=== PATIENT | male | born 1980 | race Caucasian/White ===

== ENCOUNTER 2022-12-21 11:31 | Emergency (ER) | payer OTHER ==
[2022-12-21 12:03] VITALS: RESP 16
[2022-12-21] MEDS ORDERED: ONDANSETRON 4 MG/2 ML VIAL IVP STA (12:31)
[2022-12-21] MEDS ORDERED: KETOROLAC 15 MG/ML 1 ML VIAL IVP STA (12:31)
[2022-12-21] MEDS ORDERED: SODIUM CHLORIDE 0.9% 1,000 ML IV STA (12:31)
[2022-12-21] MEDS ORDERED: PANTOPRAZOLE 40 MG/10 ML VIAL IVP STA (12:31)
--- NOTE | 2022-12-21 12:36 | ED ---
General Adult HPI - General Chief complaint: Abdominal Pain Stated complaint: abdo/back left pain Time Seen by Provider: 12/21/22 12:17 Source: patient, RN notes reviewed, old records reviewed Mode of arrival: ambulatory Limitations: no limitations - History of Present Illness Initial comments: Patient is a 42-year-old male with past medical history that is unremarkable except for one episode that is remote 15 years ago of pancreatitis presents emergency Department complaining of primarily left lower quadrant abdominal pain that seems to radiate up the left side of his abdomen and back. No flank pain. Denies any dysuria hematuria. Endorses multiple days of nonbloody diarrhea, as well as nausea but no emesis. Denies any chest pain or shortness breath. Denies any fevers, chills, cough. No known sick contacts. It is not a daily alcohol drinker. No history of diabetes. Unknown what caused his pancreatitis 15 years ago. No history of abdominal surgeries. Has had increased flatulence as well over the last 3 weeks. Presents for further evaluation at this time. - Related Data Previous Rx's Medication Instructions Recorded Amoxic-Pot Clav 875-125Mg 1 tab PO Q8HR 5 Days #15 tab 12/21/22 [Augmentin 875-125] Allergies Allergy/AdvReac Type Severity Reaction Status Date / Time No Known Allergies Allergy Verified 12/21/22 11:43 Review of Systems ROS Statement: Those systems with pertinent positive or pertinent negative responses have been documented in the HPI. Review of Systems: CONST: Denies fever EYES: Denies blurry vision ENT: Denies nasal congestion C/V: Denies Chest pain RESP: Denies shortness of breath GI: Endorses abdominal pain : Denies dysuria SKIN: Denies rash. MSK: Denies joint pain. NEURO: Denies headache ROS Other: All systems not noted in ROS Statement are negative. Past Medical History Past Medical History: No Reported History History of Any Multi-Drug Resistant Organisms: None Reported Past Surgical History: No Surgical Hx Reported Additional Past Surgical History / Comment(s): vasectomy 2004 Past Psychological History: No Psychological Hx Reported Past Alcohol Use History: Rare Past Drug Use History: None Reported - Past Family History Mother Additional Family Medical History / Comment(s): Translocated genes-chromosomal abnormality General Exam - General Exam Comments Initial Comments: General: Appears in no acute distress. HEAD: Normal with no signs of head trauma. EYES: PERRLA, EOMI, conjunctiva normal, no discharge. ENT: Hearing grossly intact, normal oropharynx. RESPIRATORY: Clear breath sounds bilaterally. No wheezes, rales, or rhonchi. C/V: Regular rate and rhythm. S1 and S2 auscultated,peripheral pulses 2+ and intact throughout ABD: Abdomen is soft, nondistended. Tender to palpation left lower quadrant that is minimal. No guarding. No rebound tenderness. No peritoneal signs. No CVA tenderness to percussion. EXT: Normal range of motion, no obvious deformity SKIN: No rashes or lesions observed on exposed skin. NEURO: Alert and oriented 4. Limitations: no limitations Course Vital Signs 12/21/22 12/21/22 11:44 16:25 Temperature 97.9 F 98.7 F Pulse Rate 87 77 Respiratory 16 16 Rate Blood Pressure 128/87 122/82 O2 Sat by Pulse 97 98 Oximetry Medical Decision Making - Medical Decision Making Was pt. sent in by a medical professional or institution (, PA, RESEARCH PHLEBOTOMIST, urgent care, hospital, or senior living...) When possible be specific @ -No Did you speak to anyone other than the patient for history (EMS, parent, family, police, friend...)? What history was obtained from this source @ -No Did you review nursing and triage notes (agree or disagree)? Why? @ -I reviewed and agree with nursing and triage notes Were old charts reviewed (outside hosp., previous admission, EMS record, old EKG, old radiological studies, urgent care reports/EKG's, senior living records)? Report findings @ -No old charts were reviewed Differential Diagnosis (chest pain, altered mental status, abdominal pain women, abdominal pain men, vaginal bleeding, weakness, fever, dyspnea, syncope, headache, dizziness, GI bleed, back pain, seizure, CVA, palpatations, mental health, musculoskeletal)? @ -Differential Abdominal Pain Men: Appendicitis, cholecystitis, diverticulosis, ischemic bowel, pancreatitis, hepatitis, UTI, gastroenteritis, AAA, incarcerated hernia, bowel obstruction, constipation, inflammatory bowel, hepatitis, peptic ulcer disease, splenic infarction, perforated viscus, testicular torsion, this is not meant to be an all-inclusive list EKG interpreted by me (3pts min.). @ -None done X-rays interpreted by me (1pt min.). @ -None done CT interpreted by me (1pt min.). @ -CT abdomen and pelvis reveals diverticulitis. Appears uncomplicated. U/S interpreted by me (1pt. min.). @ -None done What testing was considered but not performed or refused? (CT, X-rays, U/S, labs)? Why? @ -None What meds were considered but not given or refused? Why? @ -None Did you discuss the management of the patient with other professionals (professionals i.e. , PA, RESEARCH PHLEBOTOMIST, lab, RT, psych nurse, marriage and family social worker, sales representative livestock, teacher, marketing and communications officer, showcase maker)? Give summary @ -No Was smoking cessation discussed for >3mins.? @ -No Was critical care preformed (if so, how long)? @ -No Were there social determinants of health that impacted care today? How? (Homelessness, low income, unemployed, alcoholism, drug addiction, transportation, low edu. Level, literacy, decrease access to med. care, care home, rehab)? @ -No Was there de-escalation of care discussed even if they declined (Discuss DNR or withdrawal of care, Hospice)? DNR status @ -No What co-morbidities impacted this encounter? (DM, HTN, Smoking, COPD, CAD, Cancer, CVA, ARF, Chemo, Hep., AIDS, mental health diagnosis, sleep apnea, morbid obesity)? @ -None Was patient admitted / discharged? Hospital course, mention meds given and route, prescriptions, significant lab abnormalities, going to OR and other per tinent info. @ -Based on the patient's presentation and physical exam, presents with primarily left lower quadrant abdominal pain with diarrhea. Exam is relatively unremarkable. Vital signs within acceptable limits. We will obtain abdominal laboratory studies as well as a CT abdomen and pelvis. He'll be symptomatically treated with IV fluids, Zofran, Protonix, Toradol. She was in agreement this plan. There is long delay in obtaining labs, however they did return within acceptable limits. CT shows uncomplicated diverticulitis. On reevaluation, patient's pain is improved. We discussed this workup and results. He understands he has diverticulitis. He will be placed on Augmentin and given a starter pack of Zofran. He was in agreement with this plan. I will provide the patient with a prescription for Augmentin. I instructed the patient to follow up with their PCP in the next 1-3 days. I explained that the patient should return to the emergency department if they experience any worsening symptoms. Strict return precautions were discussed with the patient. The patient expressed understanding of these instructions. I answered all qu estions that the patient had. The patient was discharged home in good condition with their prescriptions and follow up information. Undiagnosed new problem with uncertain prognosis? @ -No Drug Therapy requiring intensive monitoring for toxicity (Heparin, Nitro, Insulin, Cardizem)? @ -No Were any procedures done? @ -No Diagnosis/symptom? @ -Diverticulitis Acute, or Chronic, or Acute on Chronic? @ -Acute Uncomplicated (without systemic symptoms) or Complicated (systemic symptoms)? @ -Complicated Side effects of treatment? @ -none Exacerbation, Progression, or Severe Exacerbation] @ -no Poses a threat to life or bodily function? @ -no - Lab Data Result diagrams: 12/21/22 14:54 12/21/22 14:54 Lab Results 12/21/22 12/21/22 12/21/22 Range/Units 14:54 14:54 14:54 WBC 4.5 (3.8-10.6) k/uL RBC 5.77 (4.30-5.90) m/uL Hgb 15.9 (13.0-17.5) gm/dL Hct 48.4 (39.0-53.0) % MCV 83.8 (80.0-100.0) fL MCH 27.5 (25.0-35.0) pg MCHC 32.8 (31.0-37.0) g/dL RDW 13.1 (11.5-15.5) % Plt Count 246 (150-450) k/uL MPV 8.0 Neutrophils % 56 % Lymphocytes % 28 % Monocytes % 10 % Eosinophils % 2 % Basophils % 0 % Neutrophils # 2.5 (1.3-7.7) k/uL Lymphocytes # 1.2 (1.0-4.8) k/uL Monocytes # 0.4 (0-1.0) k/uL Eosinophils # 0.1 (0-0.7) k/uL Basophils # 0.0 (0-0.2) k/uL PT 10.2 (10.0-12.5) sec INR 0.9 (<1.2) APTT 24.3 (22.0-30.0) sec Sodium 140 (137-145) mmol/L Potassium 4.2 (3.5-5.1) mmol/L Chloride 103 (98-107) mmol/L Carbon Dioxide 27 (22-30) mmol/L Anion Gap 10 mmol/L BUN 18 (9-20) mg/dL Creatinine 0.95 (0.66-1.25) mg/dL Est GFR (CKD-EPI)AfAm >90 (>60 ml/min/1.73 sqM) Est GFR (CKD-EPI)NonAf >90 (>60 ml/min/1.73 sqM) Glucose 86 (74-99) mg/dL Plasma Lactic Acid Efrem (0.7-2.0) mmol/L Calcium 10.1 (8.4-10.2) mg/dL Total Bilirubin 0.5 (0.2-1.3) mg/dL AST 37 (17-59) U/L ALT 47 (4-49) U/L Alkaline Phosphatase 67 (38-126) U/L Total Protein 7.8 (6.3-8.2) g/dL Albumin 4.7 (3.5-5.0) g/dL Amylase 86 (30-110) U/L Lipase 281 (23-300) U/L Urine Color Urine Appearance (Clear) Urine pH (5.0-8.0) Ur Specific [place] (1.001-1.035) Urine Protein (Negative) Urine Glucose (UA) (Negative) Urine Ketones (Negative) Urine Blood (Negative) Urine Nitrite (Negative) Urine Bilirubin (Negative) Urine Urobilinogen (<2.0) mg/dL Ur Leukocyte Esterase (Negative) Urine RBC (0-5) /hpf Urine WBC (0-5) /hpf Urine Mucus (None) /hpf 12/21/22 12/21/22 Range/Units 14:54 15:10 WBC (3.8-10.6) k/uL RBC (4.30-5.90) m/uL Hgb (13.0-17.5) gm/dL Hct (39.0-53.0) % MCV (80.0-100.0) fL MCH (25.0-35.0) pg MCHC (31.0-37.0) g/dL RDW (11.5-15.5) % Plt Count (150-450) k/uL MPV Neutrophils % % Lymphocytes % % Monocytes % % Eosinophils % % Basophils % % Neutrophils # (1.3-7.7) k/uL Lymphocytes # (1.0-4.8) k/uL Monocytes # (0-1.0) k/uL Eosinophils # (0-0.7) k/uL Basophils # (0-0.2) k/uL PT (10.0-12.5) sec INR (<1.2) APTT (22.0-30.0) sec Sodium (137-145) mmol/L Potassium (3.5-5.1) mmol/L Chloride (98-107) mmol/L Carbon Dioxide (22-30) mmol/L Anion Gap mmol/L BUN (9-20) mg/dL Creatinine (0.66-1.25) mg/dL Est GFR (CKD-EPI)AfAm (>60 ml/min/1.73 sqM) Est GFR (CKD-EPI)NonAf (>60 ml/min/1.73 sqM) Glucose (74-99) mg/dL Plasma Lactic Acid Efrem 0.8 (0.7-2.0) mmol/L Calcium (8.4-10.2) mg/dL Total Bilirubin (0.2-1.3) mg/dL AST (17-59) U/L ALT (4-49) U/L Alkaline Phosphatase (38-126) U/L Total Protein (6.3-8.2) g/dL Albumin (3.5-5.0) g/dL Amylase (30-110) U/L Lipase (23-300) U/L Urine Color Yellow Urine Appearance Clear (Clear) Urine pH 5.0 (5.0-8.0) Ur Specific [place] 1.028 (1.001-1.035) Urine Protein Negative (Negative) Urine Glucose (UA) Negative (Negative) Urine Ketones Negative (Negative) Urine Blood Trace H (Negative) Urine Nitrite Negative (Negative) Urine Bilirubin Negative (Negative) Urine Urobilinogen <2.0 (<2.0) mg/dL Ur Leukocyte Esterase Negative (Negative) Urine RBC 1 (0-5) /hpf Urine WBC 1 (0-5) /hpf Urine Mucus Few H (None) /hpf Disposition Clinical Impression: Diverticulitis Disposition: HOME SELF-CARE Condition: Good Instructions (If sedation given, give patient instructions): Diverticulitis (ED) Prescriptions: Amoxic-Pot Clav 875-125Mg [Augmentin 875-125] 1 tab PO Q8HR 5 Days #15 tab Is patient prescribed a controlled substance at d/c from ED?: No Referrals: Chi Zhu MD [STAFF PHYSICIAN] - 1-2 days Time of Disposition: 16:00
[2022-12-21 15:30] LABS: INR 0.9 (<1.2); Partial Thromboplastin Time 24.3 sec (22.0-30.0); Prothrombin Time 10.2 sec (10.0-12.5)
[2022-12-21 15:34] LABS: Appearance,Urine Clear (Clear); Bilirubin,Urine Negative (Negative); Blood,Urine Trace (Negative); Color,Urine Yellow; Glucose,Urine (UA) Negative (Negative); Ketones,Urine Negative (Negative); Leukocyte Esterase,Urine Negative (Negative); Mucus,Urine Few /hpf; Nitrite,Urine Negative (Negative); Protein,Urine Negative (Negative); RBC,Urine 1 /hpf (0-5); Specific Gravity,Urine 1.028 (1.001-1.035); Urobilinogen,Urine <2.0 mg/dL (<2.0); WBC,Urine 1 /hpf (0-5)
[2022-12-21 15:42] LABS: ALT 47 U/L (4-49); AST 37 U/L (17-59); African American GFR (CKD) >90 (>60 ml/min/1.73 sqM); Albumin 4.7 g/dL (3.5-5.0); Alkaline Phosphatase 67 U/L (38-126); Amylase 86 U/L (30-110); Anion Gap 10 mmol/L; Basophils % (A) 0 %; Blood Urea Nitrogen 18 mg/dL (9-20); Calcium 10.1 mg/dL (8.4-10.2); Carbon Dioxide 27 mmol/L (22-30); Chloride 103 mmol/L (98-107); Eosinophils # (A) 0.1 k/uL (0-0.7); Eosinophils % (A) 2 %; Glucose 86 mg/dL (74-99); HCT 48.4 % (39.0-53.0); HGB 15.9 gm/dL (13.0-17.5); Lipase 281 U/L (23-300); Lymphocytes # (A) 1.2 k/uL (1.0-4.8); Lymphocytes % (A) 28 %; MCH 27.5 pg (25.0-35.0); MCHC 32.8 g/dL (31.0-37.0); MCV 83.8 fL (80.0-100.0); Monocytes # (A) 0.4 k/uL (0-1.0); Monocytes % (A) 10 %; Neutrophils # (A) 2.5 k/uL (1.3-7.7); Neutrophils % (A) 56 %; Non-African American GFR(CKD) >90 (>60 ml/min/1.73 sqM); Platelet Count 246 k/uL (150-450); Potassium 4.2 mmol/L (3.5-5.1); RBC 5.77 m/uL (4.30-5.90); RDW 13.1 % (11.5-15.5); Sodium 140 mmol/L (137-145); Total Bilirubin 0.5 mg/dL (0.2-1.3); Total Protein 7.8 g/dL (6.3-8.2); WBC 4.5 k/uL (3.8-10.6)
--- NOTE | 2022-12-21 16:00 | CT ---
EXAMINATION TYPE: CT abdomen pelvis w con DATE OF EXAM: 12/21/2022 COMPARISON: 01/10/2015 HISTORY: 42-year-old male left lower quadrant abdominal pain TECHNIQUE: Contiguous axial scanning of the abdomen and pelvis following administration of 100 ml Iso [place] 300 IV contrast. Delayed images through the kidneys and coronal/sagittal reconstructions perform ed. CT DLP: 865.7 mGycm Automated exposure control for dose reduction was used. FINDINGS: Heart normal size without pericardial effusion. There are some subtle reticulonodular infiltrate at t he right base. No pleural effusion. Suggestion of tiny 4 mm and smaller hepatic hypodensities not well seen and the 2015 exam. Portal albert ous system is patent. No biliary ductal dilatation. Gallbladder, adrenal glands, kidneys, spleen, and pancreas within normal limits. No dilated small bowel, free fluid, or free air. No mesenteric or retroperitoneal lymphadenopathy. Retroaortic left renal vein. Normal appendix. Mild stool burden. Left-sided colonic diverticulosis. There is short segment wall thickening with mild pericolonic fat stranding at the junction of the rafia cending and sigmoid colon. No abnormal fluid collection is seen. Bladder is collapsed. Prostate gland mildly enlarged at 4.2 cm wide. No abnormal fluid collection in the pelvis or pelvic lymphadenopathy. Unchanged mixed lesion with narrow zone of transition measuring 1.8 cm and the right iliac bone sugge sting a benign etiology. No osseous destructive process. IMPRESSION: 1. SUBTLE RETICULONODULAR INFILTRATE AT THE RIGHT BASE. CORRELATE FOR BRONCHIOLITIS INCLUDING INFECTI OUS CAUSES. 2. TINY 4 MM HEPATIC HYPODENSITIES NOT WELL SEEN ON THE 2014 EXAM. POSSIBLE INTERVAL DEVELOPMENT OF T INY BENIGN LIVER CYSTS. CORRELATE TO EXCLUDE OTHER LESS LIKELY ETIOLOGIES SUCH FUNGAL MICROABSCESS ES. 3. FINDINGS SUGGEST MILD ACUTE DIVERTICULITIS AT THE JUNCTION OF THE DESCENDING AND SIGMOID COLON. NO ABSCESS OR FREE AIR.
[2022-12-21] MEDS ORDERED: AMOXIC-POT CLAV 875-125MG 1 EACH TAB PO STA (16:15)
[2022-12-21] MEDS ORDERED: ONDANSETRON 4 MG ODT STARTER PACK 2 TAB BTL PO STA (16:20)
[2022-12-21 16:37] VITALS: BP 122/82; PULSE 77; TEMP 98.7
== END 2022-12-21 16:46 | disposition home or self-care (01) ==
LOC: EC 11:31
DX: K57.32 Diverticulitis of large intestine without perforation or abscess without bleeding (principal)
CPT/HCPCS: 36415; 80053; 82150; 83605; 83690; 85025; 85610; 85730; 81001; 74177; 99284; 96374; 96375 ×2; 96361; J2405; J1885; S0119; C9113; Q9967

== ENCOUNTER → 2023-09-21 | Outpatient (CLI) | payer OTHER ==
--- NOTE | 2023-09-21 15:39 | CT ---
EXAMINATION TYPE: CT chest wo con DATE OF EXAM: 09/21/2023 COMPARISON: none HISTORY: abnormal chest xray CT DLP: 283.[address] of the chest was performed with lung and mediastinal window settings submitted. The la ck of contrast limits evaluation of the vascular, mediastinal and parenchymal structures including th e upper abdomen. LUNGS: Reticulonodular infiltrates throughout both lung schwartz. Correlate for atypical pneumonia. No atelectasis. No pulmonary mass is detected. No pleural effusion. No CT evidence of interstitial l carli disease. MEDIASTINUM/SANDRA: Thoracic aorta is of normal caliber with limited evaluation given lack of contrast . The heart is not enlarged. No evidence for mediastinal mass. No lymph nodes greater than 1cm. UPPER ABDOMEN: No significant abnormality is seen. OTHER: No significant other abnormality. IMPRESSION: 1. Reticulonodular infiltrates throughout both lung schwartz. Correlate for atypical pneumonia.
== END | disposition home or self-care (01) ==
LOC: RADCTMAIN 15:09
PROVIDERS: ATTEND Family Medicine
DX: R91.8 Other nonspecific abnormal finding of lung field (principal); R05.9 Cough, unspecified
CPT/HCPCS: 71250

== ENCOUNTER 2023-11-01 12:03 | Day surgery (SDC) | payer OTHER ==
[~2023-11-01 12:03] MED LIST: LACTATED RINGERS 1,000 ML IV SCH; LIDOCAINE 1% (10MG/ML) FOR IV START INTRADERMA PRN
[2023-11-01] MEDS: IV FLUID CONTINUATION 1,000 ML IV ONE (12:18)
[2023-11-01] MEDS: LACTATED RINGERS 1,000 ML IV SCH (12:32)
[2023-11-01] MEDS: ATROPINE SULFATE 0.4 MG/ML 1 ML VIAL IM ONE (12:39)
[2023-11-01] MEDS ORDERED: PROPOFOL 10 MG/ML 20 ML VIAL IV ONE (12:45)
[2023-11-01] MEDS ORDERED: GLYCOPYRROLATE 0.2 MG/ML 2 ML VIAL ONE (12:45)
[2023-11-01] MEDS ORDERED: ONDANSETRON 4 MG/2 ML VIAL ONE (12:45)
[2023-11-01] MEDS ORDERED: MIDAZOLAM 2 MG/2 ML VIAL ONE (12:45)
[2023-11-01] MEDS ORDERED: LIDOCAINE 1% INJ 10MG/ML (20 ML MDV) ONE (12:45)
[2023-11-01] MEDS ORDERED: SUCCINYLCHOLINE CHLORIDE 200 MG/10 ML VIAL IV ONE (12:45)
[2023-11-01] MEDS ORDERED: fentaNYL (PF) 50 MCG/ML 2 ML AMP ONE (12:45)
[2023-11-01 13:42] VITALS: TEMP 97.2
--- NOTE | 2023-11-01 14:20 | XR ---
EXAMINATION TYPE: XR chest 1V portable DATE OF EXAM: 11/01/2023 Comparison: 10/26/2023 Clinical History: 43-year-old male bronch Findings: The cardiomediastinal silhouette, aorta, and pulmonary vasculature are within normal limits. Reticu lonodular opacities persist, slightly increased from 10/26/23. No consolidation or effusion. Impression: Ongoing and slight worsening reticulonodular opacities. No pneumothorax.
[2023-11-01 14:21] VITALS: RESP 18
[2023-11-01 14:48] VITALS: BP 108/73; PULSE 97
[2023-11-02 16:31] LABS: Appearance,BF Slightly Cloudy (Clear); RBC, Body Fluid 225 /UL (0-2000)
[2023-11-07 10:23] LABS: Nucleated Cells, Body Fluid 560 /UL
--- NOTE | 2023-11-07 12:03 | FL ---
EXAMINATION TYPE: FL bronchoscopy DATE OF EXAM: 11/01/2023 FLUOROSCOPY Fluoroscopy time of 30 seconds was used during endobronchial biopsy on the right. 9 image/s document /s the procedure. DAP .[id number] mGym2
--- NOTE | 2023-11-08 15:09 | PCN ---
PROCEDURE NOTE PULMONARY/CRITICAL CARE PROCEDURE NOTE: PROCEDURES PERFORMED: Bronchoscopy, airway examination, therapeutic lavage, BAL right middle lobe, brushes right lower lobe, endobronchial and transbronchial biopsies right lower lobe. PREOPERATIVE DIAGNOSIS: Diffuse interstitial lung disease. POSTOPERATIVE DIAGNOSIS: Diffuse interstitial lung disease. POWDER COAT PAINTER: Dr. Mcdowell. FIRST NET UI DEVELOPER: Caitlyn Centeno. DESCRIPTION OF PROCEDURE: The patient's procedure was done in [facility] room #1. There was informed consent and universal timeout. Anesthesia provided general endotracheal anesthesia. After the patient was adequately sedated and anesthetized, the bronchoscope was inserted through the bronchoscope adapter was connected to the endotracheal tube. We went down and looked at the airways. The airways were without any abnormalities. We evaluated the right upper lobe and its 3 segments, right middle lobe and its 2 segments, right lower lobe and its 5 segments, left upper lobe proper and its 2 segments, lingula and its 2 segments, and left lower lobe and its 4 segments. Next, under fluoroscopic guidance, we did brushes to the right lower lobe. Next, under fluoroscopic guidance. We did multiple transbronchial and endobronchial biopsies to the right lower lobe. We got at least 8 or 9 good biopsy pieces. Finally, we did a BAL in the right middle lobe. The patient tolerated the procedure well. There was no significant bleeding. We ensured hemostasis before the bronchoscope was withdrawn. The bronchoscope was withdrawn. We used a fluoro machine, to determine if there was any obvious pneumothorax. There was not. A formal chest x-rays ordered. The sample was sent to the laboratory for analysis. I did speak to the patient's after the procedure. Additional recommendations and suggestions are forthcoming. MMODL / IJN: [id number] /
== END 2023-11-01 15:00 ==
LOC: ORWHC2ENDO 12:03
PROVIDERS: ATTEND Internal Medicine Critical Care Medicine
DX: J84.89 Other specified interstitial pulmonary diseases
CPT/HCPCS: 31623; 31624; 31628; 71045; 87070; 87102; 87116; 87205; 87206; 87496; 87498; 87502; 87529; 87634; 87635; 87798; 88104; 88108; 88305; 88312; 89050

== ENCOUNTER → 2023-11-10 | Outpatient (CLI) | payer OTHER ==
[2023-11-10 17:16] LABS: BUN/Creat Ratio 12.33 Ratio (12.00-20.00); Blood Urea Nitrogen 11.1 mg/dL (9.0-27.0); C Reactive Protein, High Sens 0.236 mg/L (0.000-3.000); Glucose 93 mg/dL (70-110)
[2023-11-10 17:17] LABS: ALT 28 U/L (10-49); AST 18 U/L (14-35); Alkaline Phosphatase 75 U/L (41-126); Calcium 10.5 mg/dL (8.7-10.3); Carbon Dioxide 27.3 mmol/L (21.6-31.8); Chloride 102 mmol/L (96-109); Globulin 2.5 g/dL (1.6-3.3); Potassium 4.2 mmol/L (3.5-5.5); Sodium 140 mmol/L (135-145); Total Bilirubin 0.6 mg/dL (0.3-1.2); Total Protein 7.5 g/dL (6.2-8.2)
== END | disposition home or self-care (01) ==
LOC: LABWHC1 12:04
PROVIDERS: ATTEND Internal Medicine Critical Care Medicine
DX: R05.9 Cough, unspecified (principal); D86.9 Sarcoidosis, unspecified
CPT/HCPCS: 36415; 80053; 82164; 85652; 86141

== ENCOUNTER → 2023-11-13 | Outpatient (CLI) | payer OTHER ==
[2023-11-14 05:06] LABS: Calcium 24 Hour,Urine 227.4 mg/24Hr (100.0-300.0)
== END | disposition home or self-care (01) ==
LOC: LABWHC1 09:14
PROVIDERS: ATTEND Internal Medicine Critical Care Medicine
DX: D86.9 Sarcoidosis, unspecified (principal); R05.9 Cough, unspecified
CPT/HCPCS: 81050; 82340

== ENCOUNTER → 2024-02-12 | Outpatient (CLI) | payer OTHER ==
[2024-02-12 18:18] LABS: Alternaria alternata IgE <0.10 kU/L; Aspergillus fumagatus IgE <0.10 kU/L; Birch IgE <0.10 kU/L; Cat Epith & Dander IgE <0.10 kU/L; Cladosporian herbarum IgE <0.10 kU/L; Clam IgE <0.10 kU/L; Cockroach IgE <0.10 kU/L; Codfish IgE <0.10 kU/L; Dermato. farinae IgE <0.10 kU/L; Dog Dander IgE <0.10 kU/L; Egg White IgE <0.10 kU/L; Elm IgE <0.10 kU/L; Maple (Box Elder) IgE <0.10 kU/L; Oak IgE <0.10 kU/L; Peanut IgE <0.10 kU/L; Ragweed,Common IgE <0.10 kU/L; Red Top (Bentgrass) IgE <0.10 kU/L; Scallop IgE <0.10 kU/L; Shrimp IgE <0.10 kU/L; Soybean IgE <0.10 kU/L; Walnut IgE (Food) <0.10 kU/L
== END | disposition home or self-care (01) ==
LOC: LABWHC1 11:12
PROVIDERS: ATTEND Internal Medicine Critical Care Medicine
DX: J45.909 Unspecified asthma, uncomplicated (principal); J18.9 Pneumonia, unspecified organism; D86.0 Sarcoidosis of lung
CPT/HCPCS: 36415; 82785; 85008; 86003

== ENCOUNTER → 2024-05-24 | Outpatient (CLI) | payer OTHER ==
[2024-05-24 15:17] LABS: ALT 21 U/L (10-49); AST 16 U/L (14-35); Albumin 4.4 g/dL (3.8-4.9); Albumin/Globulin Ratio 2.32 Ratio (1.60-3.17); Alkaline Phosphatase 45 U/L (41-126); BUN/Creat Ratio 5.78 Ratio (12.00-20.00); Blood Urea Nitrogen 5.2 mg/dL (9.0-27.0); C Reactive Protein <0.30 mg/dL (0.00-0.80); Carbon Dioxide 28.5 mmol/L (21.6-31.8); Chloride 104 mmol/L (96-109); Chol/HDL Ratio 2.52 Ratio; Globulin 1.9 g/dL (1.6-3.3); Glucose 113 mg/dL (70-110); LDL Cholesterol,Calculated 66.2 mg/dL (0.0-131.0); Potassium 4.4 mmol/L (3.5-5.5); Sodium 143 mmol/L (135-145); Total Bilirubin 0.4 mg/dL (0.3-1.2); Total Protein 6.3 g/dL (6.2-8.2)
== END | disposition home or self-care (01) ==
LOC: LABWHC1 10:24
PROVIDERS: ATTEND Internal Medicine Critical Care Medicine
DX: Z13.6 Encounter for screening for cardiovascular disorders (principal); D86.0 Sarcoidosis of lung; I50.9 Heart failure, unspecified; E11.9 Type 2 diabetes mellitus without complications; E78.5 Hyperlipidemia, unspecified; E03.9 Hypothyroidism, unspecified; R79.89 Other specified abnormal findings of blood chemistry
CPT/HCPCS: 36415; 80053; 80061; 81050; 82164; 83036; 83695; 85652; 86140

== ENCOUNTER → 2024-06-21 | Outpatient (CLI) | payer OTHER ==
--- NOTE | 2024-06-21 10:27 | CT ---
EXAMINATION TYPE: CT chest w con DATE OF EXAM: 06/21/2024 7:43 AM COMPARISON: 09/21/2023 CLINICAL INDICATION: Male, 44 years old with history of D86.9; PHH, HX OF SARCOIDOSIS X 1 YR TECHNIQUE: CT of the chest after administration of IV contrast. Coronal and sagittal reconstructions performed. Contrast used:100 ML mL of Isovue 300 with IV Contrast (None if empty) CT DLP: 482 mGycm, Automated exposure control for dose reduction was used. FINDINGS: Heart normal size without pericardial effusion. Aorta normal caliber with conventional arch vessel branching anatomy. Borderline to mildly enlarged right hilar lymph node and 1.3 cm. Otherwise, no thoracic lymphadenopat hy by CT size criteria. There has been significant interval improvement in the previous perilymphatic and centrilobular nodul arity. Residual nodularity remains within the upper and mid lungs. Background strandy scarring at the apices. No consolidation or pleural effusion. Visualized upper abdomen shows moderate stool. Otherwise, no gross abnormality. Bones: No osseous destructive process. IMPRESSION: 1. Significant interval improvement in the previous sarcoid related perilymphatic and centrilobular n odularity seen throughout the lungs. Some residual nodularity remains in the upper and midlungs. 2. Background mild postinflammatory scarring at the apices. [facility], , 06/21/2024 10:25 AM
== END | disposition home or self-care (01) ==
LOC: RADCTMAIN 07:09
PROVIDERS: ATTEND Internal Medicine Critical Care Medicine
DX: D86.9 Sarcoidosis, unspecified (principal); R91.8 Other nonspecific abnormal finding of lung field; J98.4 Other disorders of lung
CPT/HCPCS: 71260; Q9967